=== PATIENT | female | born 1975 | race Caucasian/White ===

== ENCOUNTER → 2021-01-18 08:00 | Outpatient (CLI) | payer OTHER ==
[~2021-01-18 08:00] MED LIST: AMOX1TAB5 PO; BACTRIM 400-801 TAB PO; ETODOLAC500 MG PO; SURFAK240 M1 PO; ULTRACET PO; XYZAL5 MG PO
== END | disposition home or self-care (01) ==
LOC: LAB 08:00 → ADM 08:00 → CIR.AMB 01-23 08:00 → EDSTATUS 01-23 08:00
PROVIDERS: ATTEND Surgery
DX: U07.1 COVID-19 (principal); K42.9 Umbilical hernia without obstruction or gangrene

== ENCOUNTER 2021-02-20 06:00 | Day surgery (SDC) | payer OTHER ==
[~2021-02-20 06:00] MED LIST changes: -AMOX1TAB5 PO; -SURFAK240 M1 PO; -ULTRACET PO
[2021-02-20] MEDS ORDERED: SURFAK240 M1 PO (09:19)
[2021-02-20] MEDS ORDERED: AMOX1TAB5 PO (09:19)
[2021-02-20] MEDS ORDERED: ULTRACET PO (09:19)
== END 2021-02-20 17:15 | disposition home or self-care (01) ==
LOC: CIR.AMB 06:00
PROVIDERS: ATTEND Surgery
DX: K43.0 Incisional hernia with obstruction, without gangrene (principal); Z20.822 Contact with and (suspected) exposure to COVID-19